=== PATIENT | male | born 1975 | race Caucasian/White ===

== ENCOUNTER 2016-04-26 01:12 | Emergency (ER) | payer BC ==
[~2016-04-26] VITALS: Ht 175.3 cm; Wt 72.6 kg
[2016-04-26 01:16] VITALS: BP 121/64
--- NOTE | 2016-04-26 01:54 | PHYS DOC ---
Adult General Chief Complaint Chief Complaint: CHEST PAIN HPI HPI 40-year-old male who developed significant left arm pain that did radiate into his chest after eating a meal approximately 45 minutes prior to arrival. Upon arrival now the patient states his pain has improved significantly. He states he has virtually no pain at this time but that when he came on it was significant rated a 10 out of 10 area denies taking any medications. He denies any history of medical problems. He is unsure if he has any family history of heart disease. He does admit to smoking multiple cigarettes a day and is an occasional alcohol drinker. He denies any drug use. Review of Systems Review of Systems Constitutional: Denies fever or chills [] Eyes: Denies change in visual acuity, redness, or eye pain [] HENT: Denies nasal congestion or sore throat [] Respiratory: Denies cough or shortness of breath [] Cardiovascular: No additional information not addressed in HPI [] GI: Denies abdominal pain, nausea, vomiting, bloody stools or diarrhea [] : Denies dysuria or hematuria [] Musculoskeletal: Denies back pain or joint pain [] Integument: Denies rash or skin lesions [] Neurologic: Denies headache, focal weakness or sensory changes [] Endocrine: Denies polyuria or polydipsia [] Current Medications Current Medications Current Medications Medications (Trade) Dose Ordered Sig/Robert Start Time Stop Time Status Last Admin Dose Admin Aspirin (Osiris Aspirin) 325 mg 1X ONCE 04/26/16 02:45 04/26/16 02:46 DC 04/26/16 03:58 325 MG Allergies Allergies Allergies Coded Allergies Type Severity Reaction Last Updated Verified No Known Drug Allergies 04/26/16 No Physical Exam Physical Exam Constitutional: Well developed, well nourished, no acute distress, non-toxic appearance. [] HENT: Normocephalic, atraumatic, bilateral external ears normal, oropharynx moist, no oral exudates, nose normal. [] Eyes: PERRLA, EOMI, conjunctiva normal, no discharge. [] Neck: Normal range of motion, no tenderness, supple, no stridor. [] Cardiovascular:Heart rate regular rhythm, no murmur [] Lungs & Thorax: Bilateral breath sounds clear to auscultation [] Abdomen: Bowel sounds normal, soft, no tenderness, no masses, no pulsatile masses. [] Skin: Warm, dry, no erythema, no rash. [] Back: No tenderness, no CVA tenderness. [] Extremities: No tenderness, no cyanosis, no clubbing, ROM intact, no edema. [] Neurologic: Alert and oriented X 3, normal motor function, normal sensory function, no focal deficits noted. [] Psychologic: Affect normal, judgement normal, mood normal. [] Current Patient Data Lab Values Laboratory Tests Test 04/26/16 01:37 04/26/16 03:40 POC Troponin I 0.00ng/ml (<0.08) 0.00ng/ml (<0.08) EKG EKG EKG as interpreted by me shows a sinus rhythm with rate of 73 bpm. There are no acute ST findings on this EKG. Radiology/Procedures Radiology/Procedures Portable 1 view of the chest as interpreted by me does not reveal an acute cardiopulmonary process. Course & Med Decision Making Course & Med Decision Making Pertinent Labs and Imaging studies reviewed. (See chart for details) This 40-year-old male will have multiple sets of cardiac enzymes drawn. I deemed him to be in the low risk category for cardiac chest pain and for this he 'll be safe to be discharged with 2 sets of cardiac enzymes that are negative to follow closely with his primary care doctor which we will provide instructions for possible stress test in the next few days. Two sets of cardiac enzymes spaced over 3 hours in the department were negative. Upon my reassessment, the patient states he's had no return of his symptoms. He has a JOSE risk score of 0 and will be safe to be discharged and follow closely with his primary care doctor in the next several days with strict instructions to return if he develops any worsening of his chest pain. He is very agreeable with this plan and will be discharged without incident. Dragon Disclaimer Dragon Disclaimer This electronic medical record was generated, in whole or in part, using a voice recognition dictation system. Departure Departure Impression: Primary Impression: Left arm pain Disposition: HOME, SELF-CARE Condition: STABLE Patient Instructions: Chest Wall Pain, [id number] Additional Instructions: Please follow closely with your primary doctor in the next 2-3 days for your chest pain. Return to the ER if you develop any worsening of your symptoms. EUNICE MATOS DO Apr 26, 2016 01:54
[2016-04-26] MEDS ORDERED: ASPIRIN 325 MG TABLET PO ONE (02:45)
--- NOTE | 2016-04-26 07:41 | RAD ---
Exam: AP portable chest. History: Chest pain. Comparison: None. Findings: The heart and mediastinal structures are within normal limits for size. Lungs are without infiltrate. No pneumothorax or pleural effusion is appreciated. Impression: 1. No acute cardiopulmonary process.
--- NOTE | 2016-04-26 11:40 | EKG ---
[facility] [address] [place] [address] Test Date: 2016-04-26 Test Time: 01:20:59 Pat Name: AURELIA FISCHER Department: Room: Gender: M Wad Impregnator: : 1975 Requested By: EUNICE MATOS Order Number: [id number] Reading MD: Ephraim Zayas Measurements Intervals [place] Rate: 73 P: 65 PA: 170 QRS: 45 QRSD: 86 T: 43 QT: 380 QTc: 422 Interpretive Statements SINUS RHYTHM Electronically Signed On 04-28-2016 9:46:44 [employer] MACHINE [employer]PER[employer] by Ephraim Zayas
== END 2016-04-26 04:42 | disposition home or self-care (01) ==
LOC: ER 01:12
DX: M79.602 Pain in left arm (principal); R07.89 Other chest pain; F17.210 Nicotine dependence, cigarettes, uncomplicated
CPT/HCPCS: 71010; 84484; 93005; 99284